=== PATIENT | female | born 1990 | race Caucasian/White ===

== ENCOUNTER 2022-03-26 07:58 | Emergency (ER) | payer SELFPAY ==
[2022-03-26] VITALS (7 sets, daily range): BP systolic 113–137; BP diastolic 50–67; PULSE 51–79; RESP 16; TEMP 37.1; O2SAT 98–100; BMI 34.7
--- NOTE | 2022-03-26 08:19 | ECG_ITS ---
APPROVED REPORT Exam: Resting ECG HR:53 bpm ECG Measurements Heart Rate 53 AXES AZ 119 P 103 QRSd 89 QRS 124 QT 426 T 42 QTc 408 Conclusion SINUS BRADYCARDIA WITH SINUS ARRHYTHMIA WITH SHORT [place] INTERVAL POSSIBLE RIGHT VENTRICULAR HYPERTROPHY [SOME/ALL OF: PROMINENT R IN V1, LATE TRANSITION, RAD, PAMELLA, SSS] ABNORMAL ECG UNCONFIRMED REPORT Electronically signed by : David Morgan MD 03/26/2022 21:10:39
--- NOTE | 2022-03-26 08:24 | HMH.EDGENADL ---
Discharge Plan Disposition Patient Disposition: Home, Self-Care Condition: Good Prescriptions Prescriptions: New ondansetron 4 mg tablet,disintegrating 4 mg PO Q8H PRN (Reason: nausea and vomiting) Qty: 10 0RF Referrals Follow up/Referrals: Provider,Referral, [Primary Care Provider] - See instructions Activity Restrictions/Add. Instructions Additional Instructions/Restrictions: Zofran as needed for nausea and vomiting. Rest and drink plenty of fluids. Follow-up with primary care provider, call for appointment. Return to the emergency department if worse symptoms, increased vomiting, recurrence of fainting. Clinical Impressions Clinical Impression: Syncope and collapse, Acute dehydration, Vomiting Instructions Patient Instructions: DI for Diarrhea and Traveler's Diarrhea -- Adult, DI for Diarrhea and Traveler's Diarrhea -- Child, DI for Nausea -- Adult, DI for Nausea -- Child Discharge ED Provider: Jabari Alvarez General Adult HPI General Chief complaint: Nausea/Vomiting/Diarrhea Stated complaint: Dizzy, Vomitting, Fainted 03/26 Time Seen by Provider: 03/26/22 08:35 Mode of Arrival: Ambulatory Source of Information: Patient Limitations: No Limitations Description of Symptoms (Recalled from ER Triage Doc. by RN): pt reports n/v x3 days and dizziness. Pt reports symptoms have gotten worse each day. Pt reports she got very dizzy this morning, sat down and then when she tried to get back up she fainted . Pt deines fevers, denies pain. History of Present Illness HPI narrative: Complains of nausea and vomiting for 3 days. No associated diarrhea or fever. She says the only abdominal pain she has had is some sharp pains across her upper abdomen right before she vomits. No current abdominal pain. She has been feeling dizzy and lightheaded and today she had a lightheaded spell, sat down, and when she tried to get back up she painted. No chest pain or shortness of breath. No prior abdominal surgeries. No recent travel. She is currently on her menses. Related Data Previous Rx's Medication Instructions Recorded ondansetron 4 mg disintegrating 4 mg PO Q8H PRN nausea and 03/26/22 tablet vomiting #10 tabs Allergies Allergy/AdvReac Type Severity Reaction Status Date / Time No Known Allergies Allergy Verified 03/26/22 08:14 PFSH PFSH Social History Smoking Status: Never smoker ROS Obtained: Yes Systems reviewed as appropriate & no additional complaints except as documented Constitutional Constitutional: Denies fever(s), Denies headache(s) and Denies weakness ENT Ears, Nose, Mouth, and Throat: Denies headache(s), Denies nasal discharge and Denies sore throat Cardiovascular Cardiovascular: Denies chest pain and Reports syncope Respiratory Respiratory: Denies shortness of breath and Denies cough Gastrointestinal Gastrointestingal: Reports abdominal pain, nausea and vomiting; Denies constipation or diarrhea Genitourinary Female Genitourinary: Denies difficulty voiding, Denies dysuria and Denies flank pain Musculoskeletal Musculoskeletal: Denies numbness Neurologic Neurologic: Denies headache(s), Denies numbness, Reports syncope and Denies weakness Physical Exam General General appearance: alert and in no apparent distress Head Head exam: atraumatic and normocephalic Eye Eye exam: Present normal appearance and EOMI ENT ENT exam: Present mucous membranes moist Neck Neck exam: Present normal inspection and trachea midline Chest Chest inspection: Present normal inspection and symmetric chest wall rise Respiratory Respiratory exam: Present normal lung sounds bilaterally; Absent respiratory distress Cardiovascular Cardiovascular exam: Present regular rate, normal rhythm and normal heart sounds Abdominal Exam Abdominal exam: Present soft, tenderness and normal bowel sounds; Absent distention, guarding, rebound or rigidity Abdominal tenderness: Present LUQ (Minimal) Extremities Exam Extrem
[2022-03-26 08:42] LABS: Microscopic, Urine URINE MICROSCOPIC (MICROSCOPIC)
[2022-03-26 08:45] LABS: Appearance,Urine CLEAR (Clear); Bilirubin,Urine Negative (Negative); Blood, Urine 1+ (Negative); Color,Urine YELLOW (Yellow); Glucose,Urine (UA) Negative (Negative); Ketones,Urine Negative (Negative); Leukocyte Esterase,Urine TRACE (Negative); Nitrate,Urine Negative (Negative); Protein,Urine Negative (Negative); Specific Gravity, Urine 1.015 (1.005-1.030); Urobilinogen,Urine 0.2 EU/dl (0.2)
[2022-03-26 08:48] LABS: Basophils # 0.1 K/mm3 (0-0.2); Basophils % 1.6 % (0.1-2.0); Eosinophils # 0.2 K/mm3 (0.0-0.4); Eosinophils % 3.1 % (0.1-12.0); Hematocrit 42.3 % (37.0-47.0); Hemoglobin 13.5 g/dL (12.2-16.2); Lymphocytes # 1.3 K/mm3 (0.7-4.5); Lymphocytes % 19.2 % (10-50); Mean Corpuscular HGB Conc 31.9 g/dL (31.8-35.4); Mean Corpuscular Hemoglobin 29.7 pg (27.0-31.2); Mean Platelet Volume 8.3 fl (7.4-10.4); Monocytes # 0.2 K/mm3 (0.1-1.0); Monocytes % 3.3 % (1.7-9.3); Neutrophils # 4.9 K/mm3 (1.8-7.8); Neutrophils % 72.8 % (37.0-80.0); Platelet Count 397 K/mm3 (142-424); Red Blood Count 4.55 M/mm3 (4.20-5.40); Red Cell Distribution Width 13.6 % (11.5-17.5); White Blood Count 6.7 K/mm3 (4.8-10.8)
[2022-03-26 08:49] LABS: Chloride 103 mmol/L (98-107); Sodium 144 mmol/L (136-145)
[2022-03-26 08:50] LABS: Potassium 3.8 mmoL/L (3.5-5.1)
[2022-03-26 08:52] LABS: Alanine Aminotransferase 11 U/L (12-78); Albumin Level 4.5 g/dl (3.5-5.0); Albumin/Globulin Ratio 1.8 (1.1-1.8); Alkaline Phosphatase 54 U/L (38-126); Anion Gap 13.8 mEq/L (5-15); Aspartate Amino Transferase 23 U/L (14-36); Bilirubin,Total 0.3 mg/dl (0.2-1.3); Blood Urea Nitrogen 12 mg/dl (7-17); Calcium 9.1 mg/dl (8.4-10.2); Carbon Dioxide 31 mmol/L (22.0-30.0); Creatinine Clearance Estimated 100 mL/min (50-200); Estimated Glomerular Filt Rate 58 ml/min (>60); GFR (African American) 70 ML/MIN (>60); Globulin 2.5 g/dL (1.3-3.2)
[2022-03-26 09:02] LABS: Urine Pregnancy, HCG Qual. Negative (Negative)
[2022-03-26 09:08] LABS: Bacteria,Urine Trace /lpf; RBC,Urine Occasional #/hpf (0-3); WBC,Urine Occasional #/hpf (0-3)
[2022-03-26 09:29] LABS: Troponin I < 0.01 ng/ml (0.00-0.034)
[2022-03-26 09:35] LABS: Glucose 104 mg/dl (74-100)
--- NOTE | 2022-03-26 11:00 | PC.NURSE ---
Danyelle Brown rounded on pts room
--- NOTE | 2022-03-26 11:23 | PC.NURSE ---
checked on pt at this time, pt reports feeling better, pt has not had vomiting while in ER, states still some nauseated but better than she was. pt states no needs at this time. will continue to monitor
[2022-03-26 11:51] LABS: Troponin I < 0.01 ng/ml (0.00-0.034)
== END 2022-03-26 13:02 | disposition home or self-care (01) ==
PROVIDERS: Emergency Provider Emergency Medicine
DX: R55 Syncope and collapse (principal); E86.0 Dehydration; R11.10 Vomiting, unspecified; R19.7 Diarrhea, unspecified
CPT/HCPCS: 80053; 81001; 81025; 84484; 85025; 93005; 96365; 96366; 96375; 96376; 99284; J2405

== ENCOUNTER 2023-01-08 11:13 | Emergency (ER) | payer OTHER, SELFPAY ==
[2023-01-08 11:14] VITALS: BP 115/51; PULSE 64; RESP 16; TEMP 36.9; O2SAT 99; BMI 36.2
--- NOTE | 2023-01-08 11:30 | EXP.UTC ---
Discharge Plan Disposition Patient Disposition: Home, Self-Care Condition: Good Prescriptions Prescriptions: New amoxicillin [amoxicillin] 875 mg tablet 875 mg PO Q12H Qty: 20 0RF methylprednisolone 4 mg Tablets,Dose Pack 4 mg PO DIRECTED Qty: 21 0RF No Action ondansetron 4 mg tablet,disintegrating 4 mg PO Q8H PRN (Reason: nausea and vomiting) Qty: 10 0RF Referrals Follow up/Referrals: Provider,Referral, MD [Primary Care Provider] - See instructions Activity Restrictions/Add. Instructions Additional Instructions/Restrictions: Drink plenty of fluids. Take tylenol or ibuprofen for pain or fever. Take the medications as directed. Follow up with your regular doctor. GO TO THE ER FOR ANY WORSENING SYMPTOMS Clinical Impressions Clinical Impression: Otitis media Instructions Patient Instructions: Middle Ear Infection Discharge ED Provider: Alfonso Rodriguez [facility] General Stated complaint: ear pain and pressure, left side Mode of Arrival: Ambulatory Source of Information: Patient Limitations: No Limitations Time Seen by Provider: 01/08/23 11:30 HEENT Symptoms (Recalled from RN notes): Yes Resp Symptoms (Recalled from RN notes): No Skin Symptoms (Recalled from RN notes): No MS Symptoms (Recalled from RN notes): No Functional Status (Recalled from RN notes): wnl History of Present Illness Provider Complaint: Patient complaint of ear pain, pressure, fever and sore swollen jaw for 1 week. Related Data Previous Rx's Medication Instructions Recorded ondansetron 4 mg disintegrating 4 mg PO Q8H PRN nausea and 03/26/22 tablet vomiting #10 tabs amoxicillin 875 mg tablet 875 mg PO Q12H #20 tabs 01/08/23 methylprednisolone 4 mg tablets in 4 mg PO DIRECTED #21 tabs 01/08/23 a dose pack Allergies Allergy/AdvReac Type Severity Reaction Status Date / Time No Known Allergies Allergy Verified 03/26/22 08:14 Worker's Comp Is this a Worker's Comp case?: No [facility] Disclaimer: The information contained in this section may have been updated after the patient was seen, as this information can be updated by other users. Social History Smoking Status: Never smoker alcohol intake: never current occupational status: employed Travel in the last 8 weeks: None ROS Obtained: Yes All systems reviewed & no additional complaints except as documented Constitutional Constitutional: Denies chills, Reports fever(s) and Reports poor appetite Eyes Eyes: Denies eye discharge ENT Ears, Nose, Mouth, and Throat: Denies ear discharge, Reports otalgia, Denies hearing loss, Denies sinus pain and Reports sore throat Cardiovascular Cardiovascular: Denies chest pain and Denies dyspnea Respiratory Respiratory: Denies chest congestion, Reports cough and Denies dyspnea Gastrointestinal Gastrointestingal: Denies abdominal pain, diarrhea, nausea or vomiting Musculoskeletal Musculoskeletal: Denies arthralgias Integumentary/Breasts Skin/Breast: Denies rash Physical Exam General General appearance: alert and in no apparent distress Head Head exam: atraumatic, normocephalic and normal inspection Eye Eye exam: Present normal appearance; Absent PERRL or EOMI ENT ENT exam: Present mucous membranes moist and normal external ear exam Expanded ENT Exam TM/Canal exam: Bilateral TM: erythema, bulging and effusion Nose exam: Absent sinus tenderness Nasal speculum exam: Bilateral: normal Mouth exam: Present normal external inspection and other; Absent drooling Teeth exam: Present normal inspection Throat exam: Present tonsillar erythema and tonsillomegaly Neck Neck exam: Present normal inspection, full ROM and trachea midline; Absent tenderness, meningismus or lymphadenopathy Chest Chest inspection: Present normal inspection and symmetric chest wall rise; Absent tenderness Respiratory Respiratory exam: Present normal lung sounds bilaterally; Absent respiratory distress, wheezes or stridor Cardio
[2023-01-08 11:48] VITALS: BP 115/51; PULSE 64; RESP 16; TEMP 36.9; O2SAT 99
== END 2023-01-08 11:49 | disposition home or self-care (01) ==
PROVIDERS: Emergency Provider Nurse Practitioner Family
DX: H66.93 Otitis media, unspecified, bilateral (principal); R50.9 Fever, unspecified
CPT/HCPCS: 99204; 99212; G0463

== ENCOUNTER 2023-01-27 15:14 | Emergency (ER) | payer OTHER, SELFPAY ==
--- NOTE | 2023-01-27 15:30 | EXP.UTC ---
Discharge Plan Disposition Patient Disposition: Home, Self-Care Condition: Good Prescriptions Prescriptions: New ondansetron 4 mg Tablet,Disintegrating 4 mg PO Q8H PRN (Reason: Nausea) Qty: 12 0RF No Action bupropion HCl 150 mg tablet extended release 24 hr 150 mg PO DAILY Referrals Follow up/Referrals: Provider,Referral, [Primary Care Provider] - See instructions Activity Restrictions/Add. Instructions Additional Instructions/Restrictions: Drink plenty of fluids. Take tylenol or ibuprofen for pain or fever. Take the medications as directed. Follow up with your regular doctor. GO TO THE ER FOR ANY WORSENING SYMPTOMS Return the stool sample to the outpatient lab with the order that we gave you as soon as you can collect it. Clinical Impressions Clinical Impression: Diarrhea, Gastroenteritis Stand Alone Forms Stand Alone Forms: Work/School Release Instructions Patient Instructions: Diarrhea, Clostridium difficile Infection Discharge ED Provider: Alfonso Rodriguez [facility] HPI General Stated complaint: fever, vomiting Time Seen by Provider: 01/27/23 15:30 History of Present Illness Provider Complaint: She states that for the past 1 day she has had n/v/d. She denies abdominal pain. She has been exposed to family members that had similar symptoms. Related Data Home Medications Medication Instructions Recorded Confirmed bupropion HCl 150 mg 24 hr tablet, 150 mg PO DAILY mood 01/27/23 01/27/23 extended release Previous Rx's Medication Instructions Recorded ondansetron 4 mg disintegrating 4 mg PO Q8H PRN Nausea #12 tabs 01/27/23 tablet Allergies Allergy/AdvReac Type Severity Reaction Status Date / Time No Known Allergies Allergy Verified 01/27/23 15:39 [facility] Disclaimer: The information contained in this section may have been updated after the patient was seen, as this information can be updated by other users. Social History (Updated 01/09/23 @ 21:36 by Alfonso Rodriguez APRN) Smoking Status: Never smoker alcohol intake: never current occupational status: employed Travel in the last 8 weeks: None ROS Obtained: Yes All systems reviewed & no additional complaints except as documented Constitutional Constitutional: Denies chills, Denies fever(s) and Reports poor appetite ENT Ears, Nose, Mouth, and Throat: Denies dizziness and Denies sore throat Cardiovascular Cardiovascular: Denies dyspnea Respiratory Respiratory: Denies chest congestion, Denies cough and Denies dyspnea Gastrointestinal Gastrointestingal: Reports as per HPI; Denies abdominal pain Genitourinary Female Genitourinary: Denies difficulty voiding, Denies dysuria, Denies hematuria, Denies urinary frequency, Denies urinary incontinence, Denies urinary hesitancy and Denies urinary urgency Musculoskeletal Musculoskeletal: Denies arthralgias Integumentary/Breasts Skin/Breast: Denies rash Neurologic Neurologic: Denies dizziness Physical Exam General General appearance: alert and in no apparent distress Head Head exam: atraumatic and normocephalic Eye Eye exam: Present normal appearance, PERRL and EOMI ENT ENT exam: Present normal exam, normal oropharynx, mucous membranes moist, TM's normal bilaterally and normal external ear exam Neck Neck exam: Present normal inspection, full ROM and trachea midline; Absent tenderness, meningismus or lymphadenopathy Chest Chest inspection: Present normal inspection and symmetric chest wall rise; Absent tenderness, rash or abscess Respiratory Respiratory exam: Present normal lung sounds bilaterally; Absent respiratory distress, wheezes or stridor Cardiovascular Cardiovascular exam: Present regular rate and normal rhythm; Absent irregular rhythm, systolic murmur, diastolic murmur or JVD Abdominal Exam Abdominal exam: Present soft and hyperactive bowel sounds; Absent distention, tenderness, guarding, rebound, rigidity, psoas sign, obturator sign, heel t
[2023-01-27 15:40] VITALS: BP 139/78; PULSE 76; RESP 16; TEMP 37.2; O2SAT 97; BMI 39.3
[2023-01-27 16:16] VITALS: BP 139/78; PULSE 76; RESP 16; TEMP 37.2
== END 2023-01-27 16:19 | disposition home or self-care (01) ==
PROVIDERS: Emergency Provider Nurse Practitioner Family
DX: K52.9 Noninfective gastroenteritis and colitis, unspecified (principal); R11.2 Nausea with vomiting, unspecified
CPT/HCPCS: 99212; 99214; G0463

== ENCOUNTER 2023-01-30 02:10 | Emergency (ER) | payer OTHER, SELFPAY ==
[2023-01-30 02:11] VITALS: BP 118/45; PULSE 76; RESP 20; TEMP 36.7; O2SAT 99; BMI 37.5
[2023-01-30 02:13] VITALS: PULSE 76; O2SAT 97
[2023-01-30 02:15] VITALS: PULSE 67; O2SAT 99
[2023-01-30 02:30] VITALS: PULSE 68; O2SAT 100
[2023-01-30 02:31] VITALS: BP 118/73; PULSE 74; O2SAT 100
--- NOTE | 2023-01-30 02:37 | ECG_ITS ---
APPROVED REPORT Exam: Resting ECG HR:53 bpm ECG Measurements Heart Rate 53 AXES [place] 134 P 50 QRSd 96 QRS 88 QT 453 T 47 QTc 435 Conclusion SINUS BRADYCARDIA BORDERLINE ECG UNCONFIRMED REPORT Electronically signed by : David Morgan MD 01/30/2023 19:57:25
[2023-01-30 02:40] LABS: Basophils # 0.1 K/mm3 (0-0.2); Basophils % 1.1 % (0.1-2.0); Chloride 103 mmol/L (98-107); Eosinophils # 0.4 K/mm3 (0.0-0.4); Eosinophils % 4.9 % (0.1-12.0); Hemoglobin 13.6 g/dL (12.2-16.2); Lymphocytes # 2.6 K/mm3 (0.7-4.5); Mean Corpuscular HGB Conc 32.4 g/dL (31.8-35.4); Mean Corpuscular Hemoglobin 29.5 pg (27.0-31.2); Mean Platelet Volume 8.3 fl (7.4-10.4); Monocytes # 0.5 K/mm3 (0.1-1.0); Monocytes % 5.7 % (1.7-9.3); Neutrophils % 58.2 % (37.0-80.0); Platelet Count 352 K/mm3 (142-424); Potassium 3.7 mmoL/L (3.5-5.1); Red Blood Count 4.62 M/mm3 (4.20-5.40); Sodium 142 mmol/L (136-145); White Blood Count 8.5 K/mm3 (4.8-10.8)
[2023-01-30 02:42] LABS: Alanine Aminotransferase 15 U/L (12-78); Alkaline Phosphatase 47 U/L (38-126); Anion Gap 13.7 mEq/L (5-15); Aspartate Amino Transferase 23 U/L (14-36); Bilirubin,Total 0.3 mg/dl (0.2-1.3); Blood Urea Nitrogen 18 mg/dl (7-17); Carbon Dioxide 29 mmol/L (22.0-30.0); Creatinine Clearance Estimated 84 mL/min (50-200); Estimated Glomerular Filt Rate 43 ml/min (>60); GFR (African American) 52 ML/MIN (>60); Lipase 174 U/L (23-300)
[2023-01-30 02:43] LABS: Albumin Level 4.1 g/dl (3.5-5.0); Albumin/Globulin Ratio 1.4 (1.1-1.8); Globulin 2.9 g/dL (1.3-3.2); Glucose 93 mg/dl (74-100)
[2023-01-30 02:47] LABS: HCG Qualitative, Serum Negative (Negative)
[2023-01-30 02:54] LABS: Microscopic, Urine URINE MICROSCOPIC (MICROSCOPIC)
[2023-01-30 02:57] LABS: Appearance,Urine CLEAR (Clear); Blood, Urine Negative (Negative); Color,Urine YELLOW (Yellow); Glucose,Urine (UA) Negative (Negative); Ketones,Urine Negative (Negative); Leukocyte Esterase,Urine 1+ (Negative); Nitrate,Urine Negative (Negative); Protein,Urine Negative (Negative); Specific Gravity, Urine >= 1.030 (1.005-1.030); Urobilinogen,Urine 0.2 EU/dl (0.2)
[2023-01-30 03:01] LABS: Bilirubin,Urine Negative (Negative)
--- NOTE | 2023-01-30 03:12 | HMH.EDGENADL ---
Discharge Plan Disposition Patient Disposition: Home, Self-Care Condition: Good Prescriptions Prescriptions: New cefadroxil 1 gram tablet 1,000 mg PO DAILY 5 Days Qty: 5 0RF promethazine 25 mg tablet 25 mg PO Q6H PRN (Reason: nausea and vomiting) Qty: 20 0RF No Action bupropion HCl 150 mg tablet extended release 24 hr 150 mg PO DAILY ondansetron 4 mg Tablet,Disintegrating 4 mg PO Q8H PRN (Reason: Nausea) Qty: 12 0RF Referrals Follow up/Referrals: Provider,Referral, MD [Primary Care Provider] - See instructions Activity Restrictions/Add. Instructions Additional Instructions/Restrictions: Please take antibiotics as prescribed for urinary tract infection. Please take Phenergan as needed for nausea and vomiting if the Zofran is not working. Please follow-up with your primary care provider. Please return to the emergency department if you develop any new or worsening symptoms or become concerned for your health. Clinical Impressions Clinical Impression: Acute dehydration, Abdominal pain, Colitis, UTI (urinary tract infection) Instructions Patient Instructions: DI for Acute Abdominal Pain Discharge ED Provider: Montrell Wilks Adult HPI General Chief complaint: Abdominal Pain Stated complaint: nausea, vomiting Time Seen by Provider: 01/30/23 02:20 Mode of Arrival: Ambulatory Limitations: No Limitations Description of Symptoms (Recalled from ER Triage Doc. by RN): Pt reports not being able to eat for 3 weeks, N/V X2 weeks, abd pain X 1 week. Pt reports being seen in [facility] friday for N/V and stool sample was needed but pt has not been able to ahve BM since then. Pt also reports recent bilateral ear infection and toothache. Pt denies exposure to infectious disease. LMP 2-3 weeks ago per pt. Abdomen tender, mostly to right side. abdomen soft. History of Present Illness HPI narrative: 32-year-old female, history of depression, presents with multiple complaints. She reports that she has been seen multiple times for nausea vomiting and diarrhea. She reports that the symptoms began when she was diagnosed with a double ear infection about 3 weeks ago for which she took amoxicillin. She then began having nausea vomiting and intermittent diarrhea. The diarrhea ended on Friday, she has now not had a bowel movement for the last 4 days. She reports decreased p.o. intake due to nausea and vomiting. She reports that does not think she be due to her having a vasectomy. She reports history of prior ovarian cyst but no prior abdominal surgeries. She denies smoking or drinking. She reports daily marijuana use. Denies any urinary symptoms. Abdominal symptoms are generalized in nature. Related Data Home Medications Medication Instructions Recorded Confirmed bupropion HCl 150 mg 24 hr tablet, 150 mg PO DAILY mood 01/27/23 01/27/23 extended release Previous Rx's Medication Instructions Recorded ondansetron 4 mg disintegrating 4 mg PO Q8H PRN Nausea #12 tabs 01/27/23 tablet cefadroxil 1 gram tablet 1,000 mg PO DAILY 5 days #5 tabs 01/30/23 promethazine 25 mg tablet 25 mg PO Q6H PRN nausea and 01/30/23 vomiting #20 tabs Allergies Allergy/AdvReac Type Severity Reaction Status Date / Time No Known Allergies Allergy Verified 01/27/23 15:39 [facility] Disclaimer: The information contained in this section may have been updated after the patient was seen, as this information can be updated by other users. Social History (Updated 01/09/23 @ 21:36 by Alfonso Rodriguez APRN) Smoking Status: Never smoker alcohol intake: never current occupational status: employed Travel in the last 8 weeks: None ROS Obtained: Yes All systems reviewed & no additional complaints except as documented Physical Exam General General appearance: alert, anxious and obese Head Head exam: atraumatic and normocephalic Eye Eye exam: Present normal appearance, PERRL and EOMI ENT ENT ex
[2023-01-30 03:26] LABS: Bacteria,Urine 1+ /lpf; Mucus,Urine 1+ /lpf
--- NOTE | 2023-01-30 04:08 | CT_ITS ---
PROCEDURE INFORMATION: Exam: CT Abdomen And Pelvis With Contrast Exam date and time: 01/30/2023 4:30 AM Age: 32 years old Clinical indication: Abdominal tenderness; Abdominal pain; Localized; Right; Additional info: Generalized abd pain, n/v. Constipation. Fever TECHNIQUE: Imaging protocol: Computed tomography of the abdomen and pelvis with contrast. Radiation optimization: All CT scans at this facility use at least one of these dose optimization techniques: automated exposure control; mA and/or kV adjustment per patient size (includes targeted exams where dose is matched to clinical indication); or iterative reconstruction. Contrast material: ISOVUE; Contrast volume: 75 ml; Contrast route: IV; REPORTING DATA: Count of CT and Cardiac NM exams in prior 12 months: This patient has received 0 known CTs and 0 known cardiac nuclear medicine studies in the 12 months prior to the current study. COMPARISON: No relevant prior studies available. FINDINGS: Liver: Normal. No mass. Gallbladder and bile ducts: The gallbladder is partially distended. Pancreas: Normal. No ductal dilation. Spleen: Normal. No splenomegaly. Adrenal glands: Normal. No mass. Kidneys and ureters: The kidneys enhance symmetrically and there is no hydronephrosis. Stomach and bowel: There is diffuse mural thickening of the relatively contracted colon relative sparing of the cecum minor vague paracolic fat stranding. Appendix: No evidence of appendicitis. Intraperitoneal space: There is a trace free fluid in the cul-de-sac. Vasculature: Unremarkable. No abdominal aortic aneurysm. Lymph nodes: Unremarkable. No enlarged lymph nodes. Urinary bladder: The urinary bladder is contracted. Reproductive: Unremarkable as visualized. Bones/joints: Unremarkable. No acute fracture. Soft tissues: Unremarkable. IMPRESSION: Colitis, infectious or inflammatory.
--- NOTE | 2023-01-30 04:15 | PC.NURSE ---
pt reports after getting up to ambulate to bathroom pain in abd worsening. provider aware
[2023-01-30 05:35] VITALS: BP 104/64; PULSE 74; RESP 16; TEMP 36.9; O2SAT 100
== END 2023-01-30 05:37 | disposition home or self-care (01) ==
PROVIDERS: Emergency Provider Emergency Medicine
DX: E86.0 Dehydration (principal); K52.9 Noninfective gastroenteritis and colitis, unspecified; N39.0 Urinary tract infection, site not specified; R10.9 Unspecified abdominal pain; F32.A Depression, unspecified
CPT/HCPCS: 74177; 80053; 81001; 83690; 84703; 85025; 87086; 93005; 96361; 96374; 96375; 99285; J1790; Q9967

== ENCOUNTER 2023-09-03 14:32 | Outpatient (CLI) | payer OTHER, SELFPAY ==
[2023-09-03 14:50] LABS: Basophils # 0.3 K/mm3 (0-0.2); Basophils % 2.3 % (0.1-2.0); Eosinophils # 0.2 K/mm3 (0.0-0.4); Eosinophils % 2.1 % (0.1-12.0); Hemoglobin 12.4 g/dL (12.2-16.2); Lymphocytes # 1.8 K/mm3 (0.7-4.5); Mean Corpuscular HGB Conc 31.7 g/dL (31.8-35.4); Mean Corpuscular Hemoglobin 29.7 pg (27.0-31.2); Mean Corpuscular Volume 93.5 fl (81-99); Mean Platelet Volume 8.6 fl (7.4-10.4); Monocytes # 0.3 K/mm3 (0.1-1.0); Monocytes % 2.7 % (1.7-9.3); Neutrophils # 8.8 K/mm3 (1.8-7.8); Neutrophils % 76.9 % (37.0-80.0); Platelet Count 353 K/mm3 (142-424); Red Blood Count 4.17 M/mm3 (4.20-5.40); Red Cell Distribution Width 13.2 % (11.5-17.5); White Blood Count 11.4 K/mm3 (4.8-10.8)
[2023-09-05 10:51] LABS: Rubella Antibodies, IgG 8.29 index (Immune >0.99)
[2023-09-05 11:17] LABS: Rapid Plasma Reagin Ab Titer Non Reactive titer (NonRea<1:1)
[2023-09-09 09:25] LABS: HIV Screen 4th Generation wRfx Non Reactive; Hepatitis B Surface Antigen Negative; Hepatitis C Antibody Non Reactive
== END 2023-09-03 23:59 | disposition home or self-care (01) ==
LOC: LAB 14:33
PROVIDERS: PCP Nurse Practitioner; Visit Provider Obstetrics & Gynecology
DX: O26.891 Other specified pregnancy related conditions, first trimester (principal); Z3A.12 12 weeks gestation of pregnancy
CPT/HCPCS: 36415; 85025; 86593; 86703; 86762; 86850; 87340; 87380; G0432

== ENCOUNTER 2023-10-01 10:35 | Outpatient (CLI) | payer OTHER, SELFPAY | END 2023-10-01 23:59 | disposition home or self-care (01) | LOC: LAB.DROPOF 10-03 10:35 | PROVIDERS: PCP Obstetrics & Gynecology; Visit Provider Obstetrics & Gynecology | DX: O26.892 Other specified pregnancy related conditions, second trimester (principal); R87.612 Low grade squamous intraepithelial lesion on cytologic smear of cervix (LGSIL); Z3A.16 16 weeks gestation of pregnancy | CPT/HCPCS: 87086 ==

== ENCOUNTER 2023-10-07 14:43 | Outpatient (CLI) | payer OTHER, SELFPAY ==
--- NOTE | 2023-10-07 14:44 | US_ITS ---
PROCEDURE: US OB FOLLOW UP CLINICAL INDICATION: placenta location/ cervical length COMPARISON: No exams were available for comparison FINDINGS: Transabdominal and transvaginal sonographic images of the pelvis were obtained. The following parameters are obtained: From her established due date she is 17weeks 5days Viable fetus in the cephalic presentation with an anterior placenta grade 1. The placenta is 2.3 cm from the internal cervical os. The cervix measures 3.8 cm heart rate: 142bpm bpm. BPD: 18weeks 0 days HC: 17weeks 5days AC: 17weeks 5days FL: 17weeks 6days HC/AC: 1.2 FL/BPD: 0.66 FL/AC: 0.22 Growth percentile: 44 No obvious anomalies evident. profile seen, four chamber heart appear normal. IMPRESSION: 1. Viable fetus in the cephalic presentation with an anterior placenta grade 1. The fluid is within normal limits. 2. The placenta is 2.3 cm from the internal cervical os seen transvaginally. No obvious abruption seen. 3. Limited anatomical scan appears normal and consistent with the dates. 4. Suggest follow-up in 3-4 weeks for complete anatomical scan. Dictated by: Rene Pehlan MD 10/07/2023 18:12 Rene Phelan MD in [facility] 10/07/2023 18:12
== END 2023-10-07 23:59 | disposition home or self-care (01) ==
LOC: RAD 14:44
PROVIDERS: PCP Obstetrics & Gynecology; Visit Provider Obstetrics & Gynecology
DX: Z36.89 Encounter for other specified antenatal screening (principal); O26.872 Cervical shortening, second trimester; O46.92 Antepartum hemorrhage, unspecified, second trimester
CPT/HCPCS: 76816

== ENCOUNTER 2023-11-04 12:32 | Outpatient (CLI) | payer OTHER, SELFPAY ==
--- NOTE | 2023-11-04 12:33 | US_ITS ---
PROCEDURE: US OB /MATERNAL DETAIL CLINICAL INDICATION: 20 week anatomy scan COMPARISON: US US OB FOLLOW UP from 10/07/2023 FINDINGS: Transabdominal sonographic images of the pelvis were obtained. From her established due date she is 21 weeks 5 days. Single viable intrauterine gestation. Cephalic position. Placenta: Anteriorplacenta grade 1. There is an average amount of fluid. The cervix appears satisfactory. Closed and measuring 3.8 cm in length. Complete survey performed and was unremarkable on the submitted images as in PACS. No discrete anomalies identified on survey imaging by technologist. Active fetus. Three-vessel cord with satisfactory umbilical cord insertion. 4- chamber heart noted. Situs, aortic arch, LVOT, RVOT, three-vessel view appear normal. Survey of brain & ventricles Unremarkable. Cerebellum, thalamus, choroid plexus, cisterna magna appear normal. Face and neck survey unremarkable. Profile, nasion, lips and nose appeared normal. Diaphragm and chest views unremarkable. Abdomen: Both kidneys noted and unremarkable. Stomach and bladder noted and satisfactory. Spine: Survey of the spine satisfactory with no anomalies identified nor imaged. Cervical, thoracic, lower spine appear normal. Both arms and legs noted. Amniotic Fluid: Adequate. Measurements: Average ultrasound age 21weeks 3days. Estimated due date by ultrasound age 1003/13/2024. Estimated weight 410g BPD = 21weeks 6days HC = 21weeks 1day AC = 21weeks 4days FL = 21weeks 0 days Growth Percentile= 22 Heart Rate = 158bpm Cerebellum = 21weeks 4days Humerus = 21weeks 2days HC/AC is 1.14 FL/BPD is 0.66 FL/AC is 0.21 IMPRESSION: 1. Viable fetus in the cephalic presentation with an anterior placenta grade 1. 2. The fluid is within normal limits. 3. Anatomical scan appears normal. 4. biometry is consistent with the dates. Dictated by: Rene Phelan MD 11/04/2023 18:01 Rene Phelan MD in [facility] 11/04/2023 18:01
== END 2023-11-04 23:59 | disposition home or self-care (01) ==
LOC: RAD 12:33
PROVIDERS: PCP Nurse Practitioner; Visit Provider Obstetrics & Gynecology
DX: Z36.89 Encounter for other specified antenatal screening (principal); Z3A.20 20 weeks gestation of pregnancy
CPT/HCPCS: 76811

== ENCOUNTER 2023-12-18 14:01 | Outpatient (CLI) | payer OTHER, SELFPAY ==
[2023-12-18 14:27] LABS: Basophils # 0.1 K/mm3 (0-0.2); Basophils % 0.6 % (0.1-2.0); Eosinophils # 0.2 K/mm3 (0.0-0.4); Eosinophils % 1.6 % (0.1-12.0); Hematocrit 31.1 % (37.0-47.0); Hemoglobin 11.8 g/dL (12.2-16.2); Lymphocytes # 2.1 K/mm3 (0.7-4.5); Lymphocytes % 19.4 % (10-50); Mean Corpuscular HGB Conc 38.1 g/dL (31.8-35.4); Mean Corpuscular Hemoglobin 35.9 pg (27.0-31.2); Mean Corpuscular Volume 94.4 fl (81-99); Mean Platelet Volume 8.9 fl (7.4-10.4); Monocytes # 0.4 K/mm3 (0.1-1.0); Monocytes % 3.5 % (1.7-9.3); Neutrophils % 74.8 % (37.0-80.0); Platelet Count 309 K/mm3 (142-424); Red Cell Distribution Width 13.6 % (11.5-17.5); White Blood Count 10.7 K/mm3 (4.8-10.8)
[2023-12-18 15:00] LABS: Glucose,Fasting 87 mg/dl (74-100)
[2023-12-18 15:48] LABS: Glucose 1 Hour 118 mg/dL (74-100)
== END 2023-12-18 23:59 | disposition home or self-care (01) ==
LOC: LAB 14:03
PROVIDERS: PCP Nurse Practitioner; Visit Provider Obstetrics & Gynecology
DX: Z34.90 Encounter for supervision of normal pregnancy, unspecified, unspecified trimester (principal)
CPT/HCPCS: 36415; 82951; 85025

== ENCOUNTER 2024-01-06 13:57 | Outpatient (CLI) | payer OTHER, SELFPAY ==
[2024-01-06 14:21] VITALS: BMI 41.8
[2024-01-06 14:29] LABS: Microscopic, Urine URINE MICROSCOPIC (MICROSCOPIC)
[2024-01-06 14:30] VITALS: BP 130/67; PULSE 96; RESP 18; TEMP 37.1; O2SAT 98; BMI 41.8
[2024-01-06 14:44] LABS: Amphetamine/Metha Screen,Urine Negative ng/ml (<1000); Benzodiazepines Screen,Urine Negative ng/ml (<200)
[2024-01-06 14:45] LABS: Appearance,Urine Clear (Clear); Barbiturates Screen,Urine Negative ng/ml (<200); Color,Urine Yellow (Yellow); Protein,Urine Negative (Negative); Specific Gravity, Urine 1.025 (1.005-1.030)
[2024-01-06 14:46] LABS: Bilirubin,Urine Negative (Negative); Blood, Urine Negative (Negative); Cannabinoid Screen,Urine Positive ng/ml (<50); Cocaine Screen,Urine Negative ng/ml (<300); Glucose,Urine (UA) Negative (Negative); Ketones,Urine Negative (Negative); Leukocyte Esterase,Urine Negative (Negative); Nitrate,Urine Negative (Negative); Squamous Epithelial Cell,Urine 20-50 #/hpf (0-5); Urobilinogen,Urine 0.2 EU/dl (0.2); WBC,Urine 20-50 #/hpf (0-3)
[2024-01-06 14:47] LABS: Amorphous Sediment,Urine 1+ /lpf; Bacteria,Urine 2+ /lpf; Methadone Screen,Urine Negative ng/ml (<300); Mucus,Urine 2+ /lpf
[2024-01-06 14:48] LABS: Opiate Screen,Urine Negative ng/ml (<300); Phencyclidine Screen,Urine Negative ng/ml (<25)
[2024-01-06] MEDS: LACTATED RINGERS 1000ML 1,000 ML 999 ML IV (15:15)
[2024-01-06] MEDS: ACETAMINOPHEN 325MG TAB 650 MG PO (15:20)
== END 2024-01-06 16:40 | disposition home or self-care (01) ==
LOC: OBOUT 13:59 → OB 13:59
PROVIDERS: Visit Provider Nurse Practitioner Obstetrics & Gynecology
DX: O26.893 Other specified pregnancy related conditions, third trimester (principal); Z3A.30 30 weeks gestation of pregnancy; R10.31 Right lower quadrant pain
CPT/HCPCS: 80307; 81001; 87086; G0463; J7120

== ENCOUNTER 2024-01-22 07:43 | Outpatient (CLI) | payer OTHER, SELFPAY ==
--- NOTE | 2024-01-22 07:51 | US_ITS ---
PROCEDURE: US OB BIOPHYSICAL PROFILE CLINICAL INDICATION: decreased movement COMPARISON: US US OB FOLLOW UP from 10/07/2023 US US OB /MATERNAL DETAIL from 11/04/2023 FINDINGS: Transabdominal sonographic images of the uterus were obtained. From her established due date she is 33weeks 0 days. The following parameters are obtained: Viable Fetus in the cephalic presentation with an anterior placenta grade 1. Average ultrasound age is 32weeks 4days Estimated weight 1,952g, 4 lb 5 oz Cervix measures 3.4 cm. Measurements: heart Rate = 138bpm BPD = 32weeks 4days, 27 percentile HC = 33weeks 1day, 17 percentile AC = 32weeks 4days, 35 percent FL = 31weeks 6days, 12 percent HC/AC is 1.05 FL/BPD is 0.76 FL/AC is 0.22 22 percentile Amniotic fluid index: 11.98cm, MVP 4.4 cm. Qualitative AFV:2 Breathing movements: 2 Gross Body Movements: 2 Tone: 2 Biophysical profile score: 8 No obvious anomalies evident.Kidneys, profile, stomach, bladder, four-chamber heart, three-vessel cord appear normal. IMPRESSION: 1. Viable fetus in the cephalic presentation with an anterior placenta grade 1. 2. The fluid is within normal limits with an amniotic fluid index of 11.98 cm, MVP 4.4 cm. 3. Biophysical profile is 8/8 with good breathing movement and movement seen. 4. There has been good interval growth with the fetus currently 22nd percentile. 5. Limited anatomical scan appears normal. Dictated by: Rene Phelan MD 01/22/2024 10:10 Rene Phelan MD in [facility] 01/22/2024 10:10
--- NOTE | 2024-01-22 07:51 | US_ITS ---
FINAL REPORT CLINICAL HISTORY: pt. having right side abdominal pain FINDINGS: ULTRASOUND RIGHT UPPER QUADRANT Sonographic imaging of the right upper quadrant was obtained. The pancreas is partially obscured. The liver is unremarkable. There is no evidence of gallstones. There is no gallbladder wall thickening. There is no biliary ductal dilatation. The common duct is normal at 4 mm. Limited images of the right kidney are unremarkable. There may be minimal fluid in the upper abdomen related to minimal ascites. IMPRESSION: No acute process. Possible, minimal ascites. Reviewed, Interpreted and Dictated by Kalyan Infante MD Transcribed by Radha Antunez Authenticated and [facility]
== END 2024-01-22 23:59 | disposition home or self-care (01) ==
LOC: RAD 07:44
PROVIDERS: Visit Provider Obstetrics & Gynecology
DX: O36.8190 Decreased fetal movements, unspecified trimester, not applicable or unspecified (principal); R10.9 Unspecified abdominal pain
CPT/HCPCS: 76705; 76816; 76819

== ENCOUNTER 2024-02-13 16:47 | Outpatient (CLI) | payer OTHER, SELFPAY | END 2024-02-13 23:59 | disposition home or self-care (01) | LOC: LAB.DROPOF 16:48 | PROVIDERS: PCP Obstetrics & Gynecology; Visit Provider Obstetrics & Gynecology | DX: Z34.90 Encounter for supervision of normal pregnancy, unspecified, unspecified trimester (principal) | CPT/HCPCS: 86403 ==

== ENCOUNTER 2024-02-19 07:43 | Outpatient (CLI) | payer OTHER, SELFPAY ==
[2024-02-19 08:00] VITALS: BMI 43.9
[2024-02-19 08:33] LABS: Microscopic, Urine URINE MICROSCOPIC (MICROSCOPIC)
[2024-02-19 08:35] LABS: Appearance,Urine CLOUDY (Clear); Bilirubin,Urine Negative (Negative); Blood, Urine Negative (Negative); Color,Urine YELLOW (Yellow); Glucose,Urine (UA) Negative (Negative); Ketones,Urine Negative (Negative); Leukocyte Esterase,Urine 3+ (Negative); Nitrate,Urine Negative (Negative); Protein,Urine TRACE (Negative); Urobilinogen,Urine 0.2 EU/dl (0.2)
[2024-02-19 08:44] LABS: Amphetamine/Metha Screen,Urine Negative ng/ml (<1000); Bacteria,Urine 2+ /lpf; Mucus,Urine Trace /lpf
[2024-02-19 08:45] LABS: Barbiturates Screen,Urine Negative ng/ml (<200)
[2024-02-19 08:46] LABS: Benzodiazepines Screen,Urine Negative ng/ml (<200); Cannabinoid Screen,Urine Positive ng/ml (<50)
[2024-02-19 08:47] LABS: Cocaine Screen,Urine Negative ng/ml (<300)
[2024-02-19 08:48] LABS: Methadone Screen,Urine Negative ng/ml (<300); Opiate Screen,Urine Negative ng/ml (<300)
[2024-02-19 08:49] LABS: Phencyclidine Screen,Urine Negative ng/ml (<25)
[2024-02-19 10:50] VITALS: BP 141/70; PULSE 102; RESP 18; TEMP 36.6; O2SAT 100; BMI 43.9
== END 2024-02-19 10:52 | disposition home or self-care (01) ==
LOC: OBOUT 07:46 → OB 07:48
PROVIDERS: PCP Nurse Practitioner; Visit Provider Obstetrics & Gynecology
DX: O36.8130 Decreased fetal movements, third trimester, not applicable or unspecified (principal); Z3A.37 37 weeks gestation of pregnancy
CPT/HCPCS: 80307; 81001; 87086; G0463

== ENCOUNTER 2024-02-26 08:42 | Inpatient (IN) | payer OTHER, SELFPAY ==
[2024-02-26 07:55] VITALS: BP 121/65; PULSE 92; RESP 16; TEMP 36.6; O2SAT 100; BMI 45.2
[2024-02-26 07:58] VITALS: BMI 45.1
[2024-02-26 08:22] LABS: Microscopic, Urine URINE MICROSCOPIC (MICROSCOPIC)
[2024-02-26 08:26] LABS: Appearance,Urine CLEAR (Clear); Bilirubin,Urine Negative (Negative); Blood, Urine Negative (Negative); Color,Urine YELLOW (Yellow); Glucose,Urine (UA) Negative (Negative); Ketones,Urine Negative (Negative); Leukocyte Esterase,Urine TRACE (Negative); Nitrate,Urine Negative (Negative); Protein,Urine Negative (Negative); Urobilinogen,Urine 0.2 EU/dl (0.2)
[2024-02-26 08:30] LABS: Bacteria,Urine Trace /lpf; Squamous Epithelial Cell,Urine 20-50 #/hpf (0-5); Yeast,Urine Occasional /lpf
[2024-02-26 08:31] LABS: Fetal Membrane Rupture (Rapid) Positive (Negative)
[2024-02-26 08:37] LABS: Amphetamine/Metha Screen,Urine Negative ng/ml (<1000); Barbiturates Screen,Urine Negative ng/ml (<200)
[2024-02-26 08:38] LABS: Benzodiazepines Screen,Urine Negative ng/ml (<200)
[2024-02-26 08:39] LABS: Cannabinoid Screen,Urine Positive ng/ml (<50); Cocaine Screen,Urine Negative ng/ml (<300)
[2024-02-26 08:40] LABS: Methadone Screen,Urine Negative ng/ml (<300)
[2024-02-26 08:41] LABS: Opiate Screen,Urine Negative ng/ml (<300); Phencyclidine Screen,Urine Negative ng/ml (<25)
--- NOTE | 2024-02-26 08:48 | P.CONPHA_ITS ---
Pharmacy Intervention Comments: MEDICATION RECONCILIATION COMPLETED ON PATIENT USING EXTERNAL FILL HISTORY FROM PHARMACY AND LIST FROM [facility]. -MATEO GILMORED
[2024-02-26 09:51] LABS: Basophils # 0.1 K/mm3 (0-0.2); Basophils % 0.5 % (0.1-2.0); Eosinophils # 0.2 K/mm3 (0.0-0.4); Eosinophils % 1.7 % (0.1-12.0); Hematocrit 37.8 % (37.0-47.0); Hemoglobin 11.7 g/dL (12.2-16.2); Lymphocytes # 1.8 K/mm3 (0.7-4.5); Lymphocytes % 16.6 % (10-50); Mean Corpuscular HGB Conc 30.8 g/dL (31.8-35.4); Mean Corpuscular Hemoglobin 28.7 pg (27.0-31.2); Mean Corpuscular Volume 93.1 fl (81-99); Mean Platelet Volume 8.1 fl (7.4-10.4); Monocytes # 0.3 K/mm3 (0.1-1.0); Monocytes % 2.9 % (1.7-9.3); Neutrophils # 8.5 K/mm3 (1.8-7.8); Neutrophils % 78.3 % (37.0-80.0); Platelet Count 363 K/mm3 (142-424); Red Blood Count 4.06 M/mm3 (4.20-5.40); Red Cell Distribution Width 14.1 % (11.5-17.5); White Blood Count 10.9 K/mm3 (4.8-10.8)
--- NOTE | 2024-02-26 10:01 | EXP.OB.APHP ---
OB - H&P: HPI Antepartum History of Present Illness Chief complaint: Leakage of fluid History of present illness: Penny Casey is a very pleasant 33 yo at 38w0d who presents with complaint of leakage of fluid. She states she started leaking at 0622 this morning. She had some contractions but they have fizzled out. No vaginal bleeding. Baby is active. She has had good care. GBS negative. Upon evaluation on L&D cervix was 3/70/-2. Amnisure positive. She reports last delivery with epidural she had a spinal headache and received multiple blood patches. History of Present Criteria for establishing EDC:: LMP confirmed by 1st trimester US care: good care Ultrasounds: normal mid trimester US Obstetrical complications: none Medical complications: none Labs Blood type: B (+) positive Rubella: immune RPR/VDRL: nonreactive GBS status: negative HBsAG: negative PFSH PFSH Disclaimer: The information contained in this section may have been updated after the patient was seen, as this information can be updated by other users. Medical History (Updated 02/26/24 @ 10:08 by Chrissy Gibbs DO) Marijuana use during 38 weeks gestation of Spontaneous rupture of membranes Bipolar disorder Surgical History History of tonsillectomy Family History Grandmother Diabetes Cancer colon Grandfather Diabetes Cancer skin Social History Smoking Status: Never smoker alcohol intake: never substance use type: marijuana current occupational status: employed Travel in the last 8 weeks: None Review of Systems Review of Systems Review of systems:: pertinent systems reviewed and negative unless documented below *Genitourinary Comments: + leakage of fluid Meds Home Medications and Allergies Home Medications ?Medication ?Instructions ?Recorded ?Confirmed ?Type vits no.126-ferrous fum 1 tab PO DAILY 08/05/23 02/26/24 History 28 mg iron-folic acid 800 mcg tablet (Classic ) bupropion HCl 300 mg 24 hr tablet, 300 mg PO DAILY #30 tabs 11/04/23 02/26/24 Rx extended release (Wellbutrin XL) famotidine 20 mg tablet (Pepcid) 20 mg PO BID #30 tabs 12/30/23 02/26/24 Rx New Prescriptions to Start Prescriptions: Allergies Allergy/AdvReac Type Severity Reaction Status Date / Time No Known Allergies Allergy Verified 02/25/24 08:31 OB - H&P: Exam Physical Exam Vital signs: Temp Pulse Resp BP Pulse Ox O2 Del Method 97.9 F 92 H 16 121/65 100 Room Air 02/26/24 07:55 02/26/24 07:55 02/26/24 07:55 02/26/24 07:55 02/26/24 07:55 02/26/24 07:55 Constitutional no acute distress and cooperative Routine HEENT Exam Head: Present normocephalic and atraumatic Eye: Absent conjunctivae pink ENT: Present mucous membranes moist Routine Neck Exam Present full ROM Routine Respiratory Exam Present CTA bilaterally and normal respiratory effort Routine Cardiovascular Exam Present RRR Routine Abdominal Exam Present soft (Gravid); Absent tenderness Routine Rectal Exam Patient deferred: visual exam Routine Exam External: Present normal urethra appearance; Absent tenderness, lesions or lacerations Routine Extremities Exam Present edema (+1 bilateral lower extremity swelling) and full ROM; Absent calf tenderness Routine Neurological Exam Present alert, moving all extremities and normal speech Routine Psychiatric Exam Present normal affect and cooperative Detailed Labor and Delivery Exam Dilation (cm): 3 Effacement (%): 70 station: -2 Membranes: spontaneously ruptured Amniotic fluid: clear Baseline heart rate: 125 monitor accelerations: Present monitor decelerations: None assisted variability: Moderate (11-25) OB - Results Labs Labs: Short CBC 02/26/24 Range/Units 09:38 WBC 10.9 H (4.8-10.8) K/mm3 Hgb 11.7 L (12.2-16.2) g/dL Hct 37.8 (37.0-47.0) % Plt Count 363 (142-424) K/mm3 Urine 02/26/24 Range/Units 07:55 Urine Color Yellow (Yellow) Urine Appearance Clear (Clear) Urine pH 7.0 (5.0-8.5) Ur Specific [place] 1.020 (1.005-1.030) Urine Protein Negative (Negative) Urine Glucose (UA) Negative (Negative) OB - A/P Antepartum (1) Spontaneous rupture of membranes: Status: Acute (2) 38 weeks gestation of : Status: Acute (3) Obesity affecting : Status: Acute (4) Marijuana use during : Status: Acute Additional Plan Additional Information:: Admit to L&D for SROM at 0622 on 02/26/24 GBS negative Augment labor with Pitocin Close monitoring Anticipate
[2024-02-26] MEDS: DEXTROSE 5%-LACTATED RINGERS 1,000 ML 125 ML IV (10:10)
[2024-02-26] MEDS: OXYTOCIN/RINGERS LACTATE 30 UNITS/500 ML BAG IV (10:10)
[2024-02-26] MEDS: OXYTOCIN/RINGERS LACTATE 30 UNITS/500 ML BAG 999 UNITS IV (12:05)
[2024-02-26] MEDS: KETOROLAC 30MG/ML VIAL 30 MG IV (12:10)
--- NOTE | 2024-02-26 12:26 | EXP.DN ---
Delivery Note Delivery Date:: 02/26/24 Delivery Time:: 12:03 Anesthesia Type: Local Was labor medically induced?: No Gestational age (weeks): 38 Infant delivered prior to 39 weeks?: Yes Justification for early elective delivery:: Premature ROM Infant Gender: Female at 1 minute: 8 at 5 minutes: 9 LAC or MLE?: LAC Delivery Procedure:: At 1014 mom was 3/60/-1. She was up in the rocking chair then went to the bathroom. On the way back from the bathroom she felt a lot of pressure. She was assisted back to bed and baby delivered spontaneously with RN. Baby spontaneously delivered through nuchal cord x 2. Baby placed on maternal abdomen, mouth and nares bulb suctioned, warmed/dried and stimulated. Delayed cord clamping was performed for 60 seconds. Cord was clamped and cut. Physician present at bedside. Placenta delivered spontaneously and intact. First degree perineal laceration repaired with 3-0 Vicryl. Hemostasis noted. Mom and baby were skin to skin and doing well after delivery. Live female baby (baby's name is Maria Dolores) APGARs 8 (1 min), 9 (5 min) EBL 50 mL Placental Delivery Description: Spontaneous
[2024-02-26] MEDS: ACETAMINOPHEN 500MG TAB 1000 MG PO (18:41)
[2024-02-26] MEDS: LANOLIN CREAM 40GM TP (18:42)
[2024-02-26] MEDS: BENZOCAINE-MENTHOL SPRAY 56GM CAN TP (18:42)
[2024-02-26] MEDS: ALUMINUM/MAGNESIUM/SIMETHICONE 30ML UDC 30 ML PO (20:16)
[2024-02-26 20:30] VITALS: BP 134/60; PULSE 66; RESP 18; TEMP 36.9; O2SAT 97
[2024-02-27] MEDS: ACETAMINOPHEN 500MG TAB 1000 MG PO ×3 (03:01→23:57)
[2024-02-27] MEDS: ALUMINUM/MAGNESIUM/SIMETHICONE 30ML UDC 30 ML PO (06:27)
[2024-02-27 07:05] LABS: Hematocrit 32.2 % (37.0-47.0)
[2024-02-27 07:09] LABS: Hemoglobin 10.5 g/dL (12.2-16.2)
--- NOTE | 2024-02-27 08:41 | EXP.ACUTE.PN ---
Subjective *Date: 02/27/24 *Time: 08:41 Interval history: PPD # 1 s/p Feeling well. Pain controlled. Breast feeding. Lochia is appropriate. Voiding without difficulty and passing flatus. Tolerating regular diet. Denies fever/chills, chest pain and shortness of breath. No headaches, vision changes, lightheadedness/dizziness. No lower extremity swelling. Ambulating well ad terry. Medical Exam Vital signs and Labs for Last 24 Hours: Vital Signs Temp Pulse Resp BP Pulse Ox O2 Del Method 02/26/24 20:30 98.4 F 66 18 134/60 97 Room Air Laboratory Results - last 24 hr 02/26/24 07:55: Urine Opiates Screen Negative, Urine Methadone Screen Negative, Ur Barbituates Screen Negative, Ur Phencyclidine Scrn Negative, Ur Amphetamines Screen Negative, U Benzodiazepines Scrn Negative, Urine Cocaine Screen Negative, U Marijuana (THC) Screen Positive H 02/26/24 09:38: WBC 10.9 H, RBC 4.06 L, Hgb 11.7 L, Hct 37.8, MCV 93.1, MCH 28.7, MCHC 30.8 L, RDW 14.1, Plt Count 363, MPV 8.1, Neut % (Auto) 78.3, Lymph % (Auto) 16.6, [place] % (Auto) 2.9, Eos % (Auto) 1.7, Baso % (Auto) 0.5, Neut # (Auto) 8.5 H, Lymph # (Auto) 1.8, [place] # (Auto) 0.3, Eos # (Auto) 0.2, Baso # (Auto) 0.1, Blood Type B Positive, Antibody Screen Negative 02/27/24 06:44: Hgb 10.5 L D, Hct 32.2 L I & O for Labs for Last 24 Hours: Intake & Output 02/24/24 02/25/24 02/26/24 02/27/24 23:59 23:59 23:59 23:59 Weight 247 lb Head: Present atraumatic and normocephalic ENT: Present normal exam Neck: Present full ROM Respiratory: Present CTA bilaterally and normal respiratory effort Cardiac: Present Reg Rate and Rhythm GI: Present soft; Absent distention or tenderness Comments:: Uterine fundus firm and below umbilicus Rectal (female): Present deferred (female): Present deferred Extremities: Present normal inspection and full ROM; Absent edema or calf tenderness Neuro: Present alert, awake and moves all extremities Assessment and Plan *Assessment and plan (1) Status post normal vaginal delivery: Status: Acute Category: Medical (2) 38 weeks gestation of : Status: Acute Category: Medical Code(s): Z3A.38 - 38 weeks gestation of (3) Spontaneous rupture of membranes: Status: Acute Category: Medical (4) Marijuana use during : Status: Acute Category: Medical Code(s): O99.320 - Drug use complicating , unspecified trimester; F12.90 - Cannabis use, unspecified, uncomplicated (5) Obesity affecting : Status: Acute Category: Medical Code(s): O99.210 - Obesity complicating , unspecified trimester (6) Anemia due to acute blood loss: Status: Acute Category: Medical Code(s): D62 - Acute posthemorrhagic anemia Plan Continue routine care Feeling well Plan d/c home tomorrow, PPD # 2
[2024-02-27 08:52] VITALS: BP 134/71; PULSE 67; RESP 17; TEMP 36.5; O2SAT 98
[2024-02-27] MEDS: IBUPROFEN 400 MG TABLET 800 MG PO ×2 (08:59→18:01)
--- NOTE | 2024-02-27 09:52 | SW/DCPLANNER ---
Addendum entered by Nida Fournier 03/04/24 11:43: Per Central Intake this case does meet criteria for investigation. Addendum entered by Nida Fournier 03/04/24 08:25: cord screen is positive for THC. I have reported this to Central Intake ID#[id number]. Addendum entered by Nida Fournier 02/27/24 10:48: Per Central Intake this case does NOT meet criteria for investigation. Original Note: I received a consult on this patient regarding positive THC use throughout . Patient tested positive for THC on the following dates: 08/06/2023, 01/06/2024, 02/19/2024 and at admission 02/26/2024. Infant urine drug screen is negative. Patient admits to THC use during due to insomnia and depression/suicidal ideation. Patient stated that she is not currently depressed or suicidal. Patient expressed that she is interested in following up w/ Behavioral Health after discharge: nursing staff (Shruti) stated she will schedule this apt. Patient stated last use of THC was two weeks ago. Patient delivered female (Maria Dolores Sutton) on 02/26/2024. 's father was present at the time of my visit (Alfonso Sutton). Patient, Alfonso, and patient's other child (Demetrius Graff 06/26/10) will reside at [address] [place] [address] [address] [place] [address]. Patient reported no past Social Service involvement w/ other child. Patient will apply for WIC. Patient also stated they have the following items at home: crib, carseat, clothing, diapers and will be breast feeding. PED MD will be Dr Morgan and patient stated that she will have transportation to all follow up appointments. I have reported this case to [facility] Intake ID#[id number].
[2024-02-27 11:19] LABS: Rapid Plasma Reagin Ab Titer Non Reactive titer (NonRea<1:1)
[2024-02-27] MEDS: PANTOPRAZOLE 40MG TABLET 40 MG PO (14:17)
[2024-02-27 16:42] VITALS: BP 136/63; PULSE 69; RESP 18; TEMP 36.9; O2SAT 98
[2024-02-27 20:20] VITALS: BP 125/58; PULSE 69; RESP 18; TEMP 36.8; O2SAT 97
[2024-02-28] MEDS: IBUPROFEN 400 MG TABLET 800 MG PO (05:37)
[2024-02-28 08:10] VITALS: BP 142/65; PULSE 83; RESP 18; TEMP 36.8; O2SAT 98
--- NOTE | 2024-02-28 08:40 | EXP.DC.SUM ---
General Admission date:: 02/26/24 Discharge date: 02/28/24 HPI HPI HPI: Penny Casey is a very pleasant 33 yo at 38w0d who presents with complaint of leakage of fluid. She states she started leaking at 0622 this morning. She had some contractions but they have fizzled out. No vaginal bleeding. Baby is active. She has had good care. GBS negative. Upon evaluation on L&D cervix was 3/70/-2. Amnisure positive. She reports last delivery with epidural she had a spinal headache and received multiple blood patches. B+ blood, Rubella immune, GBS negative. Hospital Course Hospital Course Hospital Course: She was found to be 3 cm dilated and then rapidly progressed to full dilation. She delivered spontaneously a liveborn female child at 12:03 PM on the afternoon of February 26, 2024. Baby had Apgars of 8 at 1 minute and 9 at 5 minutes. She has done well and has remained afebrile throughout her hospitalization. She is eating and drinking and ambulating. She is breast-feeding. Her lochia is normal. She will be discharged home to follow-up with Dr. Pope in approximately 2 weeks time. She will continue with her vitamins and iron. She was given the usual instructions with respect to limiting her activity, driving and sexual activity. Her condition on discharge is stable and proved. Exam Data for Last 24 hours Vital signs and Labs for Last 24 Hours: Temp Pulse Resp BP Pulse Ox O2 Del Method 98.2 F 69 18 125/58 L 97 Room Air 02/27/24 20:20 02/27/24 20:20 02/27/24 20:20 02/27/24 20:20 02/27/24 20:20 02/27/24 20:20 Laboratory Results - last 24 hr 02/26/24 09:38: RPR Titer Non reactive I & O for Last 24 hours: Intake & Output 02/25/24 02/26/24 02/27/24 02/28/24 11:59 11:59 11:59 11:59 Weight 247 lb Results Data Completed and Pending Labs on day of discharge: Labs from last 24 hours 02/26/24 09:38 RPR Titer Non reactive DS: Diagnosis Discharge Diagnosis (1) Status post normal vaginal delivery: Status: Acute (2) 38 weeks gestation of : Status: Acute Code(s): Z3A.38 - 38 weeks gestation of (3) Spontaneous rupture of membranes: Status: Acute (4) Marijuana use during : Status: Acute Code(s): O99.320 - Drug use complicating , unspecified trimester; F12.90 - Cannabis use, unspecified, uncomplicated (5) Obesity affecting : Status: Acute Code(s): O99.210 - Obesity complicating , unspecified trimester Qualifiers: Trimester: unspecified trimester Obesity type affecting : other obesity due to excess calories Qualified Code(s): O99.210 - Obesity complicating , unspecified trimester; E66.09 - Other obesity due to excess calories (6) Anemia due to acute blood loss: Status: Acute Code(s): D62 - Acute posthemorrhagic anemia Meds Home Medications and Allergies Home Medications ?Medication ?Instructions ?Recorded ?Confirmed ?Type vits no.126-ferrous fum 1 tab PO DAILY 08/05/23 02/26/24 History 28 mg iron-folic acid 800 mcg tablet (Classic ) bupropion HCl 300 mg 24 hr tablet, 300 mg PO DAILY #30 tabs 11/04/23 02/26/24 Rx extended release (Wellbutrin XL) famotidine 20 mg tablet (Pepcid) 20 mg PO BID #30 tabs 12/30/23 02/26/24 Rx New Prescriptions to Start Prescriptions: Allergies Allergy/AdvReac Type Severity Reaction Status Date / Time No Known Allergies Allergy Verified 02/25/24 08:31 Discharge Plan Disposition Patient Disposition: Home, Self-Care Discharge Order Discharge Orders: Discharge Order (Routine); Ordered 02/28/24 Ordered By: Rene Phelan Follow up Plan Follow up with: Minna Pope DO [Staff Physician] - 03/11/24 11:15 am Gina Willingham APRN [Nurse Practitioner] - Enter time for follow up Prescriptions/Medication Reconciliation: Continued Classic 28 mg iron- 800 mcg tablet 1 tab PO DAILY bupropion HCl [Wellbutrin XL] 300 mg tablet extended release 24 hr 300 mg PO DAILY Qty: 30 3RF famotidine [Pepcid] 20 mg tablet 20 mg PO BID Qty: 30 2RF Problem Reconciliation Problems Reviewed?: Yes Patient Discharge Instructions ACTIVITY: No heavy lifting DIET: continue same diet Patient Instructions: Depression, Hemorrhage, DI for Labor and Delivery, Vaginal , DI for Pre-eclampsia, [facility] Post Discharge Instructions Print Language: [place] Providers Primary Care Provider: Linda Clark Admit Provider: Chrissy Gibbs Attending Provider: Minna Pope
== END 2024-02-28 11:00 | disposition home or self-care (01) | DRG 806 ==
LOC: OBOUT 08:44 → OB 08:44
PROVIDERS: Admitting Provider Obstetrics & Gynecology; PCP Nurse Practitioner; Visit Provider Obstetrics & Gynecology
DX: O69.81X0 Labor and delivery complicated by cord around neck, without compression, not applicable or unspecified (principal); O99.323 Drug use complicating pregnancy, third trimester; Z37.0 Single live birth; O70.0 First degree perineal laceration during delivery; Z3A.38 38 weeks gestation of pregnancy; F12.90 Cannabis use, unspecified, uncomplicated; O99.214 Obesity complicating childbirth; E66.01 Morbid (severe) obesity due to excess calories; D64.9 Anemia, unspecified; O99.02 Anemia complicating childbirth; O42.92 Full-term premature rupture of membranes, unspecified as to length of time between rupture and onset of labor
CPT/HCPCS: 36415; 59025; 80307; 81001; 84112; 85014; 85018; 85025; 86593; 86850; J1885